=== PATIENT | male | born 2000 | race Caucasian/White ===

== ENCOUNTER 2025-01-09 18:20 | Emergency (ER) | payer OTHER ==
[~2025-01-09] VITALS: Ht 170.2 cm; Wt 77.2 kg
[2025-01-09 21:59] LABS: PLATELET COUNT (AUTO) 257 K/uL (150-450); RED BLOOD CELL COUNT(AUTO) 4.85 MIL/uL (4.50-5.90); RED CELL DISTRIBUTION WIDTH 13.9 % (11.5-14.5); WHITE BLOOD COUNT (AUTO) 10.3 K/uL (4.5-11.0)
[2025-01-09 22:06] LABS: CALCIUM, TOTAL 8.5 mg/dL (8.8-10.5); CREATININE 0.75 mg/dL (0.60-1.30); GLOMERULAR FILTR. RATE CALC > 60 mL/min (>60); GLUCOSE,RANDOM 98 mg/dL (70-110); SODIUM SERUM 141 mmol/L (136-145); UREA NITROGEN, BLOOD 12 mg/dL (7-18)
[2025-01-09 23:58] VITALS: BP 111/65; PULSE 74; RESP 18; TEMP 98.3; O2SAT 98
== END 2025-01-10 02:22 ==
LOC: EMS 18:24
DX: S00.83XA Contusion of other part of head, initial encounter (principal); S20.213A Contusion of bilateral front wall of thorax, initial encounter; X58.XXXA Exposure to other specified factors, initial encounter; Y93.89 Activity, other specified; Y92.89 Other specified places as the place of occurrence of the external cause; Y99.8 Other external cause status
CPT/HCPCS: 70486; 71045; 80048; 85025; 99284; 36415-L1; 36415-TC